=== PATIENT | female | born 1970 | race Caucasian/White ===

== ENCOUNTER 2016-05-29 11:58 | Emergency (ER) | payer BC, OTHER ==
[2016-05-29 12:19] VITALS: BMI 20.9
[2016-05-29] MEDS ORDERED: SODIUM CHLORIDE 1,000 ML IV STA (12:56)
[2016-05-29] MEDS ORDERED: CEFTRIAXONE 1 GM in DEXTROSE 5%-WATER - 50 ML IVPB ONE (12:56)
--- NOTE | 2016-05-29 13:11 | PDOC ---
History of Present Illness - General History Source: Patient - History of Present Illness Initial Comments: 05/29/16 13:11 Ms. Ortiz is a 46 y/o female who presents to the ED today with chills, UTI symptoms and back pain. Pt. states she noticed foul smelling urine on Tuesday05/26/16. Since then she has developed dysuria, and frequency and reported fevers. Pt. states she had a fever this morning of 104F and she took Tylenol at 09:00. She went to urgent care was diagnosed with pylonephritis and given 500mg of cipro. She was told to get a kidney US and the earliest she could get an appointment was Tuesday. She was concerned, so she came to the ED for evaluation. Pt. admits to flank pain, dysuria, frequency, nausea, fevers, and chills.Her LMP started on 05/25/16 and has not ended yet. REVIEW OF SYSTEMS: GENERAL/CONSTITUTIONAL: (+) fever or chills. No weakness. No weight change. HEAD, EYES, EARS, NOSE AND THROAT: No change in vision. No ear pain or discharge. No sore throat. CARDIOVASCULAR: No chest pain or palpitations. RESPIRATORY: No cough, wheezing, or shortness of breath. GASTROINTESTINAL: No nausea, vomiting, diarrhea or constipation. GENITOURINARY: (+)dysuria, frequency, or change in urination. (+) reported R flank pain MUSCULOSKELETAL: No joint or muscle swelling or pain. No neck or back pain. SKIN: No rash or easy bruising. NEUROLOGIC: No headache, vertigo, loss of consciousness, or loss of sensation. PSYCHIATRIC: No depression or anxiety. ENDOCRINE: No increased thirst. No abnormal weight change. HEMATOLOGIC/LYMPHATIC: No anemia, easy bleeding, or history of blood clots. ALLERGIC/IMMUNOLOGIC: No hives or skin allergy. No latex allergy. <Stacy Monique - Last Filed: 05/29/16 15:19> <Erica Garcia - Last Filed: 05/30/16 11:10> - General Chief Complaint: Urinary Problem Stated Complaint: UTI, LOWER PELVIC PAIN Time Seen by Provider: 05/29/16 12:38 Past History - Past Medical History Suicide Attempt (Hx): No Other medical history: UTI'S, ENDOMETRIOSIS - Psycho/Social/Smoking Cessation Hx Anxiety: No Suicidal Ideation: No Smoking Status: No Smoking History: Never smoked Number of Cigarettes Smoked Daily: 0 Hx Alcohol Use: Yes (SOCIAL) Drug/Substance Use Hx: No Substance Use Type: None <Stacy Monique - Last Filed: 05/29/16 15:19> <Erica Garcia - Last Filed: 05/30/16 11:10> - Past Medical History Allergies/Adverse Reactions: Allergies Allergy/AdvReac Type Severity Reaction Status Date / Time No Known Allergies Allergy Verified 05/29/16 12:19 Home Medications: Ambulatory Orders Cephalexin Monohydrate [Keflex -] 500 mg PO Q8H #21 capsule 05/29/16 Norethindrone AC-Eth Estradiol [Microgestin 21 1-20 Tablet] 1 each PO HS *Physical Exam - Vital Signs Last Vital Signs Temp Pulse Resp BP Pulse Ox 99.0 F 105 H 20 121/79 98 05/29/16 12:15 05/29/16 12:15 05/29/16 12:15 05/29/16 12:15 05/29/16 12:15 - Physical Exam Comments: 05/29/16 13:21 GENERAL: The patient is awake, alert, and fully oriented, in no acute distress. Pt. is actively shivering AAOx3 HEAD: Normal with no signs of trauma. ENT: Pupils equal, round and reactive to light, extraocular movements intact, sclera anicteric, conjunctiva clear. Neck supple. LUNGS: Clear to auscultation bilaterally. Normal excursion. No respiratory distress or use of accessory muscles. CV: RRR, S1/S2, no MRG. Cap refill < 2 sec. ABDOMEN: Diffuse abdominal tenderness (+) B/L CVA tenderness, worse on the R. Soft, non-distended. EXTREMITIES: Normal range of motion, no edema. NEUROLOGICAL: Normal speech, normal gait. CN II-XII grossly intact. PSYCH: Normal mood, normal affect. SKIN: Warm, dry, normal turgor, no rashes or lesions noted. <Stacy Monique - Last Filed: 05/29/16 15:19> - Vital Signs Last Vital Signs Temp Pulse Resp BP Pulse Ox 99.5 F 104 H 20 110/71 97 05/29/16 15:09 05/29/16 15:09 05/29/16 15:09 05/29/16 15:09 05/29/16 15:09 <Erica Garcia - Last Filed: 05/30/16 11:10> ED Treatment Course - LABORATORY CBC & Chemistry Diagram: 05/29/16 12:59 05/29/16 12:59 <Stacy Monique - Last Filed: 05/29/16 15:19> - LABORATORY CBC & Chemistry Diagram: 05/29/16 12:59 05/29/16 12:59 - ADDITIONAL ORDERS Additional order review: 05/29/16 12:59 RBC 4.80 MCV 96.5 H MCHC 33.6 RDW 13.5 MPV 8.2 Neutrophils % 88.1 H D Lymphocytes % 8.5 D Monocytes % 2.6 L Eosinophils % 0.3 D Basophils % 0.5 - Medications Given in the ED: ED Medications Discontinued Medications Generic Name Dose Route Start Last Admin Trade Name Adalq PRN Reason Stop Dose Admin Acetaminophen 650 mg 05/29/16 13:17 05/29/16 13:22 Tylenol - PO 05/29/16 13:18 650 mg ONCE ONE Administration Ceftriaxone Sodium 1 gm/ 50 mls @ 100 mls/hr 05/29/16 12:56 05/29/16 13:16 Dextrose IVPB 05/29/16 13:25 100 mls/hr ONCE ONE Administration Sodium Chloride 1,000 mls @ 1,000 mls/hr 05/29/16 12:56 05/29/16 13:16 Normal Saline - IV 05/29/16 13:55 1,000 mls/hr ASDIR STA Administration <Erica Garcia - Last Filed: 05/30/16 11:10> Medical Decision Making - Medical Decision Making 05/29/16 13:29 Ms. Ortiz is a 46 y/o female presenting with fevers and flank pain. Pts history and physical are significant for UTI with likely pylonephritis. Will also look for hydronephritis of the kidneys. Less likely d/t date of pts. LMP. UA ordered, results may be skewed as pt. was given a dose of antibiotics prior to ED visit. 1. CBC, CMP, UA, Lactic acid for severity of infection 2. Renal US to look for hydronephrosis or stones 3. Fluids started and Tylenol given for symptomatic relief. Will re-evaluate 05/29/16 15:19 Pt is feeling better after a dose of fluids and antibiotics. Pain and fevers controlled with Tylenol. Renal ultra sound shows no hydronephrosis or obstructive stones. Will discharge at this time. 05/29/16 15:33 <Stacy Monique - Last Filed: 05/29/16 15:19> *DC/Admit/Observation/Transfer <Stacy Monique - Last Filed: 05/29/16 15:19> - Attestations Physician Attestion: I independently examined and evaluated this patient in conjunction with KYLEIGH Monique, mid-level practitioner. I reviewed the case and agree with the mid- level practitioner's assessment, diagnosis and disposition. <Erica Garcia - Last Filed: 05/30/16 11:10> Diagnosis at time of Disposition: UTI (urinary tract infection) Qualifiers: Urinary tract infection type: acute cystitis Hematuria presence: with hematuria Qualified Code(s): N30.01 - Acute cystitis with hematuria - Discharge Dispostion Disposition: HOME Condition at time of disposition: Improved - Prescriptions Prescriptions: Cephalexin Monohydrate [Keflex -] 500 mg PO Q8H #21 capsule - Referrals Referrals: Marissa Christensen MD [Primary Care Provider] - - Patient Instructions Printed Discharge Instructions: Urinary Tract Infection Additional Instructions: You have a UTI with probable pylonephritis (Urine infection). Your blood count showed an infection and you were prescribed Keflex (cephalexin) by [facility]. Take the medication as prescribed and finish the prescription regardless of how you are feeling. Drink plenty of fluids and use Tylenol as needed for fever and pain. If you develop nausea and vomiting, cannot control the fevers with tylenol or have increased pain, return to the ED. - Post Discharge Activity Work/School Note: Back to Work
[2016-05-29] MEDS ORDERED: ACETAMINOPHEN WITH CODEINE 300MG/30MG TABLET PO ONE (13:14)
[2016-05-29] MEDS ORDERED: ACETAMINOPHEN 325 MG TABLET (FP) ONE (13:15)
[2016-05-29] MEDS ORDERED: CEFTRIAXONE 50 ML ONE (13:15)
[2016-05-29] MEDS ORDERED: ACETAMINOPHEN 325 MG TABLET (FP) PO ONE (13:17)
[2016-05-29 13:21] LABS: BASOPHIL 0.5 % (0-2.0); EOSINOPHIL 0.3 % (0-4.5); MCH 32.4 pg (25.7-33.7); MCHC 33.6 g/dl (32.0-36.0); MEAN CELL VOLUME 96.5 fl (80-96); MEAN PLT VOLUME 8.2 fl (7.5-11.1); NEUTROPHILS 88.1 % (42.8-82.8); PLATELET COUNT 234 K/MM3 (134-434); RDW 13.5 % (11.6-15.6); WHITE BLOOD COUNT 13.4 K/mm3 (4.0-10.0)
[2016-05-29 13:37] LABS: URINE APPEARANCE CLEAR; URINE BILIRUBIN NEGATIVE (NEGATIVE); URINE COLOR STRAW; URINE GLUCOSE (UA) NEGATIVE (NEGATIVE); URINE KETONE NEGATIVE (NEGATIVE); URINE NITRITE NEGATIVE (NEGATIVE); URINE PROTEIN NEGATIVE (NEGATIVE); URINE UROBILINOGEN NEGATIVE E.U./dl (0.2-1.0)
[2016-05-29 13:38] LABS: URINE BLOOD 2+ (NEGATIVE); URINE LEUK ESTERASE 3+ (NEGATIVE)
[2016-05-29 13:47] LABS: URINE BACTERIA RARE /hpf (NONE SEEN); URINE RBC 2 /hpf (0-3); URINE WBC 30 /hpf (3-5)
[2016-05-29 14:09] LABS: ALK PHOS 61 U/L (45-117); ANION GAP 11 (8-16); BILIRUBIN,TOTAL 0.4 mg/dL (0.2-1.0); CALCIUM 9.4 mg/dL (8.5-10.1); CO2 27 mmol/L (21-32); CREATININE 0.8 mg/dL (0.55-1.02); GLUCOSE,RANDOM 89 mg/dL (74-106); SGOT/AST 14 U/L (15-37); SGPT/ALT 23 U/L (12-78); TOT PROT 7.9 g/dl (6.4-8.2)
[2016-05-29 15:10] VITALS: BP 110/71; PULSE 104; TEMP 99.5
== END 2016-05-29 15:50 | disposition home or self-care (01) ==
LOC: JER 11:58
DX: N30.01 Acute cystitis with hematuria (principal)
CPT/HCPCS: 36415; 76775-TC; 80053; 81003; 81015; 83605; 84703; 85025; 87086; 99284-25

== ENCOUNTER 2016-07-26 08:04 | Day surgery (SDC) | payer BC, OTHER ==
[2016-07-23 12:53] VITALS: BMI 20.5
[2016-07-26] MEDS ORDERED: LEVOFLOXACIN 500 MG IVPB 100 ML IVPB ONE (10:26)
[2016-07-26] MEDS ORDERED: LEVOFLOXACIN 500 MG PREMIX BAG IVPB ONE (11:02)
[2016-07-26] MEDS ORDERED: PROPOFOL 20 ML ONE (11:10)
[2016-07-26] MEDS ORDERED: MIDAZOLAM HCL 2 MG/2 ML SINGLE DOSE VIAL ONE ×2 (11:10)
[2016-07-26] MEDS ORDERED: ONDANSETRON 4 MG/2 ML VIAL IVPUSH PRN (11:38)
[2016-07-26] MEDS ORDERED: oxyCODONE HCL 5 MG TABLET PO PRN (11:38)
[2016-07-26] MEDS ORDERED: PROMETHAZINE HCL 25 MG/1 ML VIAL IVPUSH PRN (11:38)
--- NOTE | 2016-07-26 11:54 | OP ---
Operative Note - Note: Operative Date: 07/26/16 Pre-Operative Diagnosis: right renal stone Operation: right ESWL Findings: 5 mm right renal stone Post-Operative Diagnosis: Same as Pre-op Surgeon: Naseem Bose Anesthesia: General
[2016-07-26 14:17] VITALS: BP 105/61; PULSE 69; TEMP 97.8
--- NOTE | 2016-07-27 13:05 | OP ---
DATE OF OPERATION: 07/26/2016 PREOPERATIVE DIAGNOSIS: Right renal stone. POSTOPERATIVE DIAGNOSIS: Right renal stone. PROCEDURE: Right extracorporeal shock-wave lithotripsy. ATTENDING: Ras Quinones MD ANESTHESIA: General. OPERATION: The patient was brought in the operating room, placed in the supine position on the operating room table. Ultrasonography and fluoroscopy were performed. A 5-cm right lower pole stone was identified. General anesthesia and preoperative antibiotic was then administered. The patient then underwent extracorporeal shock-wave lithotripsy, 2500 impulses at 17 joules of power was administered to the stone, with excellent fragmentation under real-time fluoroscopy and ultrasonography. No complications were noted. Excellent fragmentation of the stone was noted. Patient tolerated the procedure very well. The disposition of the patient was to the recovery room. RAS QUINONES M.D. /[id number]
== END 2016-07-26 14:45 | disposition home or self-care (01) ==
LOC: JASU-SURG 08:04
PROVIDERS: ATTEND Urology
PROC: 0TF3XZZ Fragmentation in Right Kidney Pelvis, External Approach (ICD-10-PCS; principal; 2016-07-26 09:45)
DX: N20.0 Calculus of kidney (principal)
CPT/HCPCS: 84703; 94760

== ENCOUNTER 2017-01-17 08:54 | Emergency (ER) | payer BC, OTHER ==
[2017-01-17 09:00] VITALS: TEMP 98.9; BMI 21.4
--- NOTE | 2017-01-17 09:15 | PDOC ---
History of Present Illness - General History Source: Patient Exam Limitations: No Limitations - History of Present Illness Initial Comments: 01/17/17 09:57 47 y/o F with a significant PMHx of kidney stones and ruptured discs in her neck presents to the ED with a left sided headache and left sided neck pain for 2 weeks. Patient reports that she has never had similar symptoms before. She states the pain radiates down her left arm. She has been using Tylenol with minimal relief. She recently had kidney stones removed, adn followed up with her PCP. She reported headache and neck pain to PCP who told her she should go to the ED for further evaluation. Denies fever, chills. Denies numbness, tingling, dizziness, weakness. Denies chest pain, SOB. <Sonja Randolph - Last Filed: 01/17/17 09:57> <Juan José Lobato - Last Filed: 01/17/17 10:00> - General Chief Complaint: Headache Stated Complaint: PAIN/ LT SIDE OF HEAD Time Seen by Provider: 01/17/17 09:15 Past History <Sonja Randolph - Last Filed: 01/17/17 09:57> - Past Medical History Anemia: No Asthma: No Cancer: No Cardiac Disorders: No CVA: No COPD: No CHF: No Dementia: No Diabetes: No GI Disorders: No Disorders: Yes (KIDNEY STONES) HTN: No Hypercholesterolemia: No Liver Disease: No Seizures: No Thyroid Disease: No Other medical history: endometriosis - Surgical History Abdominal Surgery: Yes (lt ovary removed) Appendectomy: No Cardiac Surgery: No Cholecystectomy: No Lung Surgery: No Neurologic Surgery: No Orthopedic Surgery: No - Suicide/Smoking/Psychosocial Hx Smoking Status: No Smoking History: Never smoked Have you smoked in the past 12 months: No Number of Cigarettes Smoked Daily: 0 Information on smoking cessation initiated: No Hx Alcohol Use: No Drug/Substance Use Hx: No Substance Use Type: Alcohol <Juan José Lobato - Last Filed: 01/17/17 10:00> - Past Medical History Allergies/Adverse Reactions: Allergies Allergy/AdvReac Type Severity Reaction Status Date / Time shrimp Allergy Rash Verified 01/17/17 08:56 Home Medications: Ambulatory Orders Norethindrone AC-Eth Estradiol [Microgestin 21 1-20 Tablet] 1 each PO HS Cholecalciferol (Vitamin D3) [Vitamin D3 -] 400 unit PO DAILY 07/23/16 Cyanocobalamin (Vitamin B-12) [Vitamin B-12] 1,000 mcg PO DAILY 07/23/16 Magnesium 200 mg PO DAILY 07/23/16 Cyclobenzaprine HCl [Flexeril 10 mg] 5 mg PO BID PRN #30 tablet 01/17/17 Ibuprofen [Motrin -] 600 mg PO QID #28 tablet 01/17/17 Potassium Citrate [Urocit-K 10 (NF)] 1 tab PO QID 01/17/17 Review of Systems - Review of Systems Able to Perform ROS?: Yes Comments:: 01/17/17 09:58 GENERAL/CONSTITUTIONAL: No fever or chills. No weakness. HEAD, EYES, EARS, NOSE AND THROAT: No change in vision. No ear pain or discharge. No sore throat. CARDIOVASCULAR: No chest pain or shortness of breath. RESPIRATORY: No cough, wheezing, or hemoptysis. GASTROINTESTINAL: No nausea, vomiting, diarrhea or constipation. GENITOURINARY: No dysuria, frequency, or change in urination. MUSCULOSKELETAL: (+) left sided neck pain. No joint or muscle swelling or pain. No back pain. SKIN: No rash NEUROLOGIC: (+) headache. No vertigo, loss of consciousness, or change in strength/sensation. ENDOCRINE: No increased thirst. No abnormal weight change. HEMATOLOGIC/LYMPHATIC: No anemia, easy bleeding, or history of blood clots. ALLERGIC/IMMUNOLOGIC: No hives or skin allergy. <Sonja Randolph - Last Filed: 01/17/17 09:57> *Physical Exam - Vital Signs Last Vital Signs Temp Pulse Resp BP Pulse Ox 98.9 F 110 H 18 128/85 100 01/17/17 08:57 01/17/17 08:57 01/17/17 08:57 01/17/17 08:57 01/17/17 08:57 - Physical Exam Comments: 01/17/17 09:58 GENERAL: Awake, alert, and fully oriented, in no acute distress HEAD: No signs of trauma EYES: PERRLA, EOMI, sclera anicteric, conjunctiva clear ENT: Auricles normal inspection, hearing grossly normal, nares patent, oropharynx clear without exudates. Moist mucosa NECK: Normal ROM, supple, no lymphadenopathy, JVD, or masses LUNGS: Breath sounds equal, clear to auscultation bilaterally. No wheezes, and no crackles HEART: Regular rate and rhythm, normal S1 and S2, no murmurs, rubs or gallops ABDOMEN: Soft, nontender, normoactive bowel sounds. No guarding, no rebound. No masses EXTREMITIES: Normal range of motion, no edema. No clubbing or cyanosis. No cords, erythema, or tenderness NEUROLOGICAL: Cranial nerves II through XII grossly intact. Normal speech, normal gait. No neurological deficits, no sensory deficits, strength is full. SKIN: Warm, Dry, normal turgor, no rashes or lesions noted. <Sonja Randolph - Last Filed: 01/17/17 09:57> - Vital Signs Last Vital Signs Temp Pulse Resp BP Pulse Ox 98.9 F 110 H 18 128/85 100 01/17/17 08:57 01/17/17 08:57 01/17/17 08:57 01/17/17 08:57 01/17/17 08:57 <Juan José Lobato - Last Filed: 01/17/17 10:00> *DC/Admit/Observation/Transfer - Attestations Scribe Attestion: 01/17/17 09:46 Documentation prepared by Sonja Randolph, acting as medical records tech for Juan José Lobato DO. <Sonja Randolph - Last Filed: 01/17/17 09:57> - Discharge Dispostion Admit: No - Attestations Physician Attestion: 01/17/17 09:15 I, Dr. Juan José Lobato, attest that this document has been prepared under my direction and personally reviewed by me in its entirety. I further attest, that it accurately reflects all work, treatment, procedures and medical decision -making performed by me. <Juan José Lobato - Last Filed: 01/17/17 10:00> Diagnosis at time of Disposition: Herniated cervical disc, Muscle contraction headache syndrome - Prescriptions Prescriptions: Cyclobenzaprine HCl [Flexeril 10 mg] 5 mg PO BID PRN #30 tablet PRN Reason: pain Ibuprofen [Motrin -] 600 mg PO QID #28 tablet - Referrals Referrals: Arnold Adhikari MD [Staff Physician] - - Patient Instructions Printed Discharge Instructions: Tension Headache Additional Instructions: Mrs Ortiz- I am sorry this is hurting you so badly. You have to follow up with Dr. Adhikari !!! He is the one who can help you. Use the flexeril for spasm/ Use the motrin for pain/ Return to us if worse. Follow up with Dr. Christensen later this week- Best- Dr. Juan José Lobato
[2017-01-17] MEDS ORDERED: methylPREDNISolone ACET (DEPO) 80 MG/1 ML VIAL IM ONE (09:49)
[2017-01-17] MEDS ORDERED: IBUPROFEN 400 MG TABLET (FP) PO ONE ×2 (09:49→10:04)
[2017-01-17] MEDS ORDERED: CYCLOBENZAPRINE HCL 5 MG TABLET PO ONE (09:51)
[2017-01-17] MEDS ORDERED: methylPREDNISolone NA SUCC 40 MG/1 ML VIAL ONE (10:04)
[2017-01-17] MEDS ORDERED: CYCLOBENZAPRINE HCL 10 MG TABLET (FP) ONE (10:08)
[2017-01-17 10:41] VITALS: BP 126/78; PULSE 78
[2017-01-18] MEDS ORDERED: CYCLOBENZAPRINE HCL 5 MG TABLET PO ONE (10:27)
== END 2017-01-17 10:20 | disposition home or self-care (01) ==
LOC: JER 08:54
PROC: 3E0233Z Introduction of Anti-inflammatory into Muscle, Percutaneous Approach (ICD-10-PCS; principal; 2017-01-17)
DX: M50.20 Other cervical disc displacement, unspecified cervical region (principal); G44.89 Other headache syndrome
CPT/HCPCS: 99282-25

== ENCOUNTER 2017-05-16 10:07 | Day surgery (SDC) | payer BC, OTHER ==
[2017-05-13 15:23] VITALS: BMI 21.4
[~2017-05-16 10:07] MED LIST: LEVOFLOXACIN 500 MG PREMIX BAG IVPB ONE
[2017-05-16] MEDS ORDERED: ONDANSETRON 4 MG/2 ML VIAL IVPUSH PRN (11:44)
[2017-05-16] MEDS ORDERED: oxyCODONE HCL 5 MG TABLET PO PRN (11:44)
[2017-05-16] MEDS ORDERED: LACTATED RINGERS SOLUTION 1,000 ML IV SCH (11:45)
[2017-05-16] MEDS ORDERED: LEVOFLOXACIN 500 MG IVPB 500 MG/100 ML BAG IVPB ONE (11:59)
[2017-05-16] MEDS ORDERED: MIDAZOLAM HCL 2 MG/2 ML SINGLE DOSE VIAL ONE (12:06)
[2017-05-16] MEDS ORDERED: PROPOFOL 20 ML ONE (12:07)
[2017-05-16] MEDS ORDERED: LEVOFLOXACIN 500 MG PREMIX BAG IVPB ONE (12:31)
--- NOTE | 2017-05-16 12:51 | OP ---
Operative Note - Note: Operative Date: 05/16/17 Pre-Operative Diagnosis: left renal stone Operation: left eswl Findings: 6 mm left mid pole stone Post-Operative Diagnosis: Same as Pre-op Surgeon: Naseem Bose Anesthesia: Fractional
[2017-05-16] MEDS ORDERED: KETOROLAC TROMETHAMINE 30 MG/1 ML VIAL ONE (12:57)
[2017-05-16] MEDS ORDERED: ETOMIDATE 20 MG/10 ML AMPUL IVPUSH ONE (12:57)
[2017-05-16 13:34] VITALS: TEMP 97.8
[2017-05-16 14:47] VITALS: PULSE 78
[2017-05-16] MEDS ORDERED: ACETAMINOPHEN 325 MG TABLET (FP) PO ONE ×2 (15:40→16:00)
[2017-05-16 15:54] VITALS: BP 131/77
--- NOTE | 2017-05-16 21:52 | OP ---
DATE OF OPERATION: 05/16/2017 PREOPERATIVE DIAGNOSIS: Left renal stone. POSTOPERATIVE DIAGNOSIS: Left renal stone. PROCEDURE: Left extracorporeal shock wave lithotripsy. ATTENDING: Ras Quinones MD ANESTHESIA: Fractional. DESCRIPTION OF OPERATION: Patient was brought in the operating room, placed in supine position on the operating room table. Ultrasonography and fluoroscopy were performed. A 6-mm left mid-pole stone was identified. The patient was then given fractional anesthesia and preoperative antibiotics. At this point, extracorporeal shock wave lithotripsy was started; 2500 impulses at 20 joules of power were administered to the stone. Excellent fragmentation of the stone was noted under real-time ultrasonography and fluoroscopy. No complications were noted. The disposition of the patient was to recovery room. RAS QUINONES M.D. SE/[id number]
== END 2017-05-16 15:59 | disposition home or self-care (01) ==
LOC: JASU-SURG 10:07
PROVIDERS: ATTEND Urology
PROC: 0TF4XZZ Fragmentation in Left Kidney Pelvis, External Approach (ICD-10-PCS; principal; 2017-05-16 12:30)
DX: N20.0 Calculus of kidney (principal)
CPT/HCPCS: 84703